=== PATIENT | female | born 1980 | race Caucasian/White ===

== ENCOUNTER 2022-04-27 12:07 | Observation (INO) | payer OTHER ==
[~2022-04-27] VITALS: Ht 152.4 cm; Wt 43.1 kg
[2022-04-27 13:03] LABS: HEMOGLOBIN 14.4 gm/dl (12.3-15.3); RED BLOOD COUNT 4.37 M/UL (4.00-5.10); WHITE BLOOD COUNT 23.1 K/UL (4.5-11.0)
[2022-04-27 13:23] LABS: BUN/CREATININE RATIO 9 (0-10)
[2022-04-27] MEDS ORDERED: TYLENOL PM EX-1 EACH PO (18:24)
[2022-04-28 03:28] LABS: WHITE BLOOD COUNT 23.1 K/UL (4.5-11.0)
[2022-04-28 03:29] LABS: HEMOGLOBIN 12.3 gm/dl (12.3-15.3); RED BLOOD COUNT 3.75 M/UL (4.00-5.10)
[2022-04-28 04:06] LABS: BUN/CREATININE RATIO 12 (0-10)
[2022-04-29 02:36] LABS: HEMOGLOBIN 12.1 gm/dl (12.3-15.3); RED BLOOD COUNT 3.75 M/UL (4.00-5.10)
[2022-04-29 02:38] LABS: WHITE BLOOD COUNT 16.7 K/UL (4.5-11.0)
[2022-04-29 03:11] LABS: BUN/CREATININE RATIO 24 (0-10)
[2022-04-29] MEDS ORDERED: CEFUROXIME500 MG PO (09:12)
== END 2022-04-29 10:52 | disposition home or self-care (01) ==
LOC: ER1 12:07 → M/S 17:07 → CDU 17:07 → M/S 18:22
PROVIDERS: Nurse Practitioner; Physician Assistant; ADMIT Internal Medicine
DX: A41.9 Sepsis, unspecified organism (principal); N12 Tubulo-interstitial nephritis, not specified as acute or chronic; E87.6 Hypokalemia; R91.1 Solitary pulmonary nodule; F17.210 Nicotine dependence, cigarettes, uncomplicated; R00.0 Tachycardia, unspecified
CPT/HCPCS: 36415; 71045; 80048; 80053; 81001; 82550; 82553; 83605; 84484; 84703; 85025; 85027; 87040; 87077; 87086; 87186; 93005; 96372; 96374; 96375; 96376; 99285; G0378; J0696; J1650; J1885; J2405; Q9967